=== PATIENT | male | born 1960 | race Caucasian/White ===

== ENCOUNTER 2016-09-16 21:48 | Emergency (ER) | payer OTHER ==
--- NOTE | 2016-09-16 22:17 | ERNOTE ---
Date of Service: 09/16/16 Time Seen by Provider: 09/16/16 22:01 Stated Complaint: COUGH Presenting Symptoms:: cough Source: patient Immunizations: IMMUNIZATION HX Immunizations Up to Date Yes History of Influenza Vaccine Yes Hx Pneumococcal Vaccination No Allergies/Adverse Reactions: Allergies Penicillins Allergy (Verified 09/16/16 21:51) Home Medications: HOME MEDICATIONS Albuterol Sulfate [Ventolin Hfa] 2 puff IH QID 09/16/16 [Last Taken Unknown] Allopurinol [Zyloprim] 300 mg PO DAILY 09/16/16 [Last Taken Unknown] Amitriptyline HCl [Elavil] 50 mg PO HS 09/16/16 [Last Taken Unknown] Aspirin [Aspirin Enteric Coated] 325 mg PO DAILY 09/16/16 [Last Taken Unknown] Hydrocortisone [Hydrocortisone 2.5% Ointment] 1 appl TP BID 09/16/16 [Last Taken Unknown] Levothyroxine Sodium [Unithroid] 175 mcg PO DAILY 09/16/16 [Last Taken Unknown] Loratadine [Claritin] 10 mg PO DAILY 09/16/16 [Last Taken Unknown] Naphazoline HCl/Pheniramine [Allergy Eye Drops] 1 drop OP BID 09/16/16 [Last Taken Unknown] Psyllium Husk (with Sugar) [Konsyl Psyllium Fiber Packet] 3.4 gm PO DAILY PRN [Last Taken Unknown] Simvastatin 20 mg PO HS 09/16/16 [Last Taken Unknown] Triamcinolone Acetonide [Kenalog 0.1%] 1 appl TP TID PRN 09/16/16 [Last Taken Unknown] - History of Present Ilness Narrative: 56-year-old male brought here from the [facility] with increasing cough and chest discomfort when he takes a deep breath and mild shortness of breath. States he's had a cold and cough for about a month now in the last 24 hours he has developed some discomfort with deep breathing as well as increased cough and some shortness of breath. He does have asthma and is on inhalers and has had some wheezing but none at this time.. He states he has had some swelling of his lower extremities. No history of heart failure, coronary disease or pulmonary embolism. Timing: constant Severity: moderate Frequency/Possible Cause: Reports: no prior episodes Modifying Factors - Improves: Reports: rest Modifying Factors - Worsens: Reports: activity Associated Symptoms: Reports: cough, shortness of breath, wheezing, nasal congestion, fever/chills Review of Systems - Review of Systems Constitutional: Present: See HPI EYE: Present: no symptoms reported ENT: Present: See HPI Respiratory: Present: See HPI Cardiology: Present: See HPI Gastrointestinal/Abdominal: Present: no symptoms reported Genitourinary: Present: no symptoms reported Musculoskeletal: Present: no symptoms reported Skin: Present: no symptoms reported Neurological: Present: no symptoms reported Endocrine: Present: no symptoms reported, other - hx of thyroid cancer Hematologic/Lymphatic: Present: no symptoms reported Psych: Present: no symptoms reported All Other Systems: All systems neg except as marked - Patient's Past Medical History Patient History - Medical: Other - thyroid cancer and gout Patient History - Cardiac/Respiratory: Asthma, Hyperlipidemia Patient History - Cancer: Thyroid Patient History - Surgical Procedures: Cancer Surgery - Social History Living Situations: home Smoking Status: Former smoker Have you smoked in the past 12 months: No Alcohol Use: none Drug Use: none Physical Exam - Physical Exam General Appearance: Present: alert, mild distress Eye Exam: Normal inspection: bilateral, PERRL: bilateral Ears, Nose, Throat: Present: normal ENT inspection, hearing grossly normal, normal pharynx Neck: Present: normal inspection, nontender Respiratory: Present: no respiratory distress, no accessory muscle use, chest nontender, other - harsh breath sounds bilaterally but no rales rhonchi or wheezing Cardiovascular/Chest: Present: no murmur, normal peripheral pulses, tachycardia Gastrointestinal/Abdominal: Present: normal bowel sounds, nontender, nondistended, soft, no organomegaly Rectal Exam: Present: deferred Back Exam: Present: normal inspection Extremity Exam: Present: normal inspection, non-tender, extremity edema - 1+ Neurological Exam: Present: alert, oriented, normal mood/affect, no motor/ sensory deficits Skin Exam: Present: normal color, diaphoresis - very mild Lymphatic Exam: Present: no adenopathy ED Progress - Results and Orders Patient's Lab Results:: I have reviewed the patient's lab results. Results and Orders: White blood cell count elevated 12,400 with elevated neutrophils at 9.2. D dimer is in the normal range at 0.23 BNP in the normal range at 82 Troponin normal at 0.017 Chemistries essentially within normal limits - Vital Signs Patient's Vital Signs:: I have reviewed the patient's vital signs. Vital Signs: Vital Signs 09/16/16 21:50 Temperature 37.0 C Pulse Rate 95 Respiratory 18 Rate Blood Pressure 171/113 - EKG EKG: supraventricular tachycardia, no ST T wave changes - Progress/Reassessment Chief Complaint: Upper Respiratory Symptoms Progress:: Unchanged Progress Note-Subjective: 09/16/16 22:57 Patient's lab including CBC d-dimet BNP chemistries and troponin are all within normal limits but his chest x-ray shows a prominence of the right mediastinum that's unusual and thid will require further investigation with CT scan Plan - Plan Plan: All lab studies, chest x-ray and CT turned out to be normal. The abnormal morphology seen on chest x-ray turned out to be normal variant without evidence of tumor and there was no evidence of pulmonary emboli either. Final diagnosis is acute bronchitis and will treat with azithromycin 500 mg stat then 250 mg daily for 4 days and to follow-up as needed Departure - Departure Clinical Impression: Bronchitis Disposition: Isp Condition: Fair Instructions: Acute Bronchitis, [id number] Additional Instructions: take the antibiotics once a day for 4 days
[2016-09-16 22:18] LABS: Hematocrit 48.1 % (42.0-52.0); Hemoglobin 16.6 gm/dL (13.5-18.0); Mean Cell Volume 86.4 fl (78-100); Mean Corpuscular Hemoglobin 29.8 pg (27-31); Mean Corpuscular Hgb Conc 34.5 g/dl (32-36); Mean Platelet Volume 9.5 fl (6.0-9.5); Neutrophil # 9.2 K/mm3 (1.3-6.0); Neutrophil % 74.8 % (42-75.0); Platelet Count 338 K/mm3 (150-450); Red Blood Count 5.57 M/mm3 (4.7-6.0); Red Cell Distribution Width 12.2 % (11.5-14.0); White Blood Count 12.4 K/mm3 (4.0-10.5)
[2016-09-16 22:39] LABS: ALT 57 U/L (19-67); AST 19 U/L (0-48); Albumin * 4.5 gm/dl (3.4-5.0); Alkaline Phosphatase * 88 U/L (50-170); Anion Gap 15.5 mmol/L (6.8-13.8); BNP * 82 pg/mL (5-175); Bilirubin, Total 0.5 mg/dL (0.0-1.1); Blood Urea Nitrogen 11 mg/dL (6-23); Ca. Corrected For Albumin 9.1 mg/dL (8.4-10.2); Calcium * 9.8 mg/dL (7.9-10.9); Carbon Dioxide 23.9 mmol/L (24-32.6); Chloride 101 mmol/L (97-106); Glucose * 113 mg/dL (70-110); Potassium 3.4 mmol/L (3.4-4.6); Sodium 137 mmol/L (132-142); Total Protein 8.1 gm/dL (6.2-8.2)
[2016-09-16 22:40] LABS: Troponin I Less than 0.017 ng/ml (0.00-0.10)
[2016-09-16] MEDS ORDERED: AZITHROMYCIN 250 MG TABLET PO ONE (23:42)
[2016-09-16] MEDS ORDERED: AZITHROMYCIN 250 MG TABLET ONE (23:42)
[2016-09-16 23:58] VITALS: BP 131/93
== END 2016-09-16 23:50 | disposition home or self-care (01) ==
LOC: ER 21:48
DX: J20.9 Acute bronchitis, unspecified (principal); Z87.891 Personal history of nicotine dependence; Z85.850 Personal history of malignant neoplasm of thyroid; J45.909 Unspecified asthma, uncomplicated